=== PATIENT | female | born 1965 | race Caucasian/White ===

== ENCOUNTER 2017-10-21 19:40 | Emergency (ER) | payer MEDICAID ==
[~2017-10-21 19:40] MED LIST: BACL10TA PO; CYAN1000P SQ; HYDR200T3 PO; LAMO200T PO; MELO15TA20 PO; MORP1TAB25 PO; PILO5TAB3 PO; POLYSOL14 EACH EYE; REST0.05 EACH EYE; ZOLO100T PO
[2017-10-21 19:42] VITALS: BP 140/75; PULSE 98; RESP 16; TEMP 99.6; O2SAT 100
--- NOTE | 2017-10-21 21:39 | RADRPT ---
EXAM DATE/TIME: 10/21/2017 20:59 [place] COMPARISON: No previous studies available for comparison. INDICATIONS : Left hip pain after falling tonight. MEDICAL HISTORY : Arthritis. Fibromyalgia. SURGICAL HISTORY : Tubal ligation. Gastric bypass. ENCOUNTER: Initial ACUITY: 1 day PAIN SCORE: 8/10 LOCATION: Left hip. FINDINGS: Examination of the left hip was performed with AP Pelvis. The primary and secondary trabecular patte rn of the femoral neck is intact. The hip joint is of normal width without significant sclerosis or bony hypertrophy. The acetabulum is grossly intact. There are well-circumscribed densities in both f emoral necks which are overly benign and may represent unusual bone islands. Severe dextrorotoscolios is of the lumbar spine with associated degenerative changes. Surgical clips in the pelvis characteris tic of prior tubal ligation CONCLUSION: No fracture. Dirk Gallardo MD on October 21, 2017 at 21:34 Board Certified Radiologist. This report was verified electronically.
[2017-10-21] MEDS ORDERED: MSIR30 PO (22:59)
[2017-10-21] MEDS ORDERED: REST0.05 EACH EYE (22:59)
[2017-10-22] MEDS ORDERED: DIAZEPAM 5 MG TAB PO ONE (00:15)
[2017-10-22] MEDS ORDERED: MORPHINE SULFATE 8 MG/ML INJ IM ONE (00:15)
--- NOTE | 2017-10-22 01:27 | PD ---
HPI Chief Complaint: Hip Injury Time Seen by Provider: 23:41 Travel History International Travel<30 days: No Contact w/Intl Traveler<30days: No Traveled to known affect area: No History of Present Illness HPI 52yo F with PMH of fibromyalgia, degenerative disc, chronic pain who follows with pain management Dr. Wong here with c/o coccyx pain and some left hip pain initially after tripping over [employer] tree on the floor of store and fell onto her buttocks. Denies any head trauma, focal weakness or numbness, urinary complaints. States pain is worst when she sits on it. PFSH Past Medical History Hx Anticoagulant Therapy: No Anemia: Yes Arthritis: Yes Bipolar Disorder: Yes Anxiety: Yes Cardiovascular Problems: No Chemotherapy: No Cerebrovascular Accident: No Diabetes: No Diminished Hearing: No Fibromyalgia: Yes GERD: Yes Herniated Disk: Yes Neurologic: Yes (SCIATICA) Respiratory: No Tetanus Vaccination: < 5 Years Influenza Vaccination: Yes ?: Not : 1 Para: 1 Miscarriage: 0 : 0 Tubal Ligation: Yes Past Surgical History Abdominal Surgery: Yes (GASTRIC BYPASS) Genitourinary Surgery: Yes (BLADDER TUCK) Hysterectomy: Yes Tonsillectomy: Yes Other Surgery: Yes (GASTRIC BYPASS X 2) Social History Alcohol Use: No Tobacco Use: No Substance Use: No Allergies-Medications (Allergen,Severity, Reaction): Coded Allergies: codeine (Unverified Allergy, Severe, 07/07/17) pregabalin (Unverified Allergy, Severe, Anaphylaxis, 07/07/17) Reported Meds & Prescriptions Reported Meds & Active Scripts Active Reported Morphine IR (Morphine Sulfate) 30 Mg Tab 30 Mg PO TID PRN Restasis Opth (Cyclosporine Opth) 0.05% Emul 2 Drop EACH EYE BID Zoloft (Sertraline HCl) 100 Mg Tab 150 Mg PO DAILY Lamotrigine 200 Mg Tab 200 Mg PO BID Cyanocobalamin Inj (Cyanocobalamin) 1,000 Mcg/Ml Inj 1,000 Mcg SQ Q30D Meloxicam 15 Mg Tab 15 Mg PO DAILY Baclofen 10 Mg Tab 10 Mg PO TID Hydroxychloroquine (Hydroxychloroquine Sulfate) 200 Mg Tab 1 Tab PO DAILY Takw with food Pilocarpine 5 Mg Tab 1 Tab PO TID Review of Systems Except as stated in HPI: all other systems reviewed are Neg Physical Exam Narrative GENERAL: 52yo F in mild distress. SKIN: Focused skin assessment warm/dry. HEAD: Atraumatic. Normocephalic. EYES: Pupils equal and round. No scleral icterus. No injection or drainage. CARDIOVASCULAR: Regular rate and rhythm. No murmur appreciated. RESPIRATORY: No accessory muscle use. Clear to auscultation. Breath sounds equal bilaterally. GASTROINTESTINAL: Abdomen soft, non-tender, nondistended. BACK: No midline thoracic or lumbar ttp. PELVIC: +TTP left ischial tuberosity and coccyx. FROM in bilateral hips. Sensation equal and intact in bilateral legs. No saddle paresthesia. MUSCULOSKELETAL: No obvious deformities. No clubbing. No cyanosis. No edema. NEUROLOGICAL: Awake and alert. No obvious cranial nerve deficits. Motor grossly within normal limits. Normal speech. PSYCHIATRIC: Appropriate mood and affect; insight and judgment normal. Data Data Last Documented VS Vital Signs Date Time Temp Pulse Resp B/P (MAP) Pulse Ox O2 Delivery O2 Flow Rate FiO2 10/22/17 01:27 10/21/17 19:42 99.6 98 16 100 Room Air Orders Orders Hip, Uni(Ap&Lat) W Ap Pelvis (10/21/17 ) Diazepam (Valium) (10/22/17 00:15) Morphine Inj (Morphine Inj) (10/22/17 00:15) Ed Discharge Order (10/22/17 01:20) [facility] Medical Decision Making Medical Screen Exam Complete: Yes Emergency Medical Condition: Yes Differential Diagnosis Contusion vs. fracture vs. musculoskeletal pain Narrative Course 52yo F here pain in coccyx and initially left hip after fall from standing at 5pm today. Took her morphine but little relief. Xray pelvis and left hip showed no fracture. Pt given morphine and valium which improved pain. Pt follows with pain management and will follow up as outpatient. No red flags. Return precautions given. Diagnosis Primary Impression: Fall Qualified Codes: W19.XXXA - Unspecified fall, initial encounter Patient Instructions: General Instructions Departure Forms: Tests/Procedures Additional Instructions: Please follow up with your pain management physician. Return to the ED if symptoms worsen. Med/Other Pt SpecificInfo: No Change to Meds Disposition: 01 DISCHARGE HOME Condition: Stable Montse Malcolm DO Oct 22, 2017 01:27
== END 2017-10-22 01:33 | disposition home or self-care (01) ==
LOC: NEPD 19:40
DX: M25.552 Pain in left hip (principal); M54.9 Dorsalgia, unspecified; M79.7 Fibromyalgia; D64.9 Anemia, unspecified; M19.90 Unspecified osteoarthritis, unspecified site; F31.9 Bipolar disorder, unspecified; F41.9 Anxiety disorder, unspecified; K21.9 Gastro-esophageal reflux disease without esophagitis; Z79.899 Other long term (current) drug therapy
CPT/HCPCS: 73502; 96372; 99283; J2270

== ENCOUNTER 2017-10-24 18:46 | Emergency (ER) | payer MEDICAID ==
[~2017-10-24 18:46] MED LIST changes: -MORP1TAB25 PO; +MSIR30 PO; -POLYSOL14 EACH EYE
[2017-10-24 18:47] VITALS: BP 126/72; PULSE 87; RESP 12; TEMP 98.2; O2SAT 97
[2017-10-24] MEDS ORDERED: PRED10PA PO (21:02)
--- NOTE | 2017-10-24 21:09 | PD ---
HPI . Coccyx and right leg pain Chief Complaint: Fall Time Seen by Provider: 20:53 Travel History International Travel<30 days: No Contact w/Intl Traveler<30days: No Traveled to known affect area: No History of Present Illness HPI Patient presents stating that she had a fall 4 days ago her buttocks. She has had coccyx pain since that time. She was seen here at that time had negative x- rays. She states that she was told to come back if her symptoms got worse did not improve. She states that she has subsequently fallen again. She is now complaining with pain in her right anterior thigh and a swollen sensation in her right lower leg. Her pain is exacerbated by movement. She rates her pain 9 /10. This patient is started being treated by pain management. She takes morphine, baclofen and Mobic on a regular basis. PFSH Past Medical History Hx Anticoagulant Therapy: No Anemia: Yes Arthritis: Yes Bipolar Disorder: Yes Anxiety: Yes Cardiovascular Problems: No Chemotherapy: No Cerebrovascular Accident: No Diabetes: No Diminished Hearing: No Fibromyalgia: Yes GERD: Yes Herniated Disk: Yes Neurologic: Yes (SCIATICA) Respiratory: No ?: Not : 1 Para: 1 Miscarriage: 0 : 0 Tubal Ligation: Yes Past Surgical History Abdominal Surgery: Yes (GASTRIC BYPASS) Genitourinary Surgery: Yes (BLADDER TUCK) Hysterectomy: Yes Tonsillectomy: Yes Other Surgery: Yes (GASTRIC BYPASS X 2) Social History Alcohol Use: No Tobacco Use: No Substance Use: No Allergies-Medications (Allergen,Severity, Reaction): Coded Allergies: codeine (Unverified Allergy, Severe, 10/24/17) pregabalin (Unverified Allergy, Severe, Anaphylaxis, 10/24/17) Reported Meds & Prescriptions Reported Meds & Active Scripts Active Prednisone (21) 10 mg tab Dose Pack (Prednisone) 10 Mg Pack 10 Mg PO DIRECTED Reported Morphine IR (Morphine Sulfate) 30 Mg Tab 30 Mg PO TID PRN Restasis Opth (Cyclosporine Opth) 0.05% Emul 2 Drop EACH EYE BID Zoloft (Sertraline HCl) 100 Mg Tab 150 Mg PO DAILY Lamotrigine 200 Mg Tab 200 Mg PO BID Cyanocobalamin Inj (Cyanocobalamin) 1,000 Mcg/Ml Inj 1,000 Mcg SQ Q30D Meloxicam 15 Mg Tab 15 Mg PO DAILY Baclofen 10 Mg Tab 10 Mg PO TID Hydroxychloroquine (Hydroxychloroquine Sulfate) 200 Mg Tab 1 Tab PO DAILY Takw with food Pilocarpine 5 Mg Tab 1 Tab PO TID Review of Systems Except as stated in HPI: all other systems reviewed are Neg General / Constitutional: No: Fever, Chills Genitourinary: No: Incontinence Physical Exam Narrative GENERAL: Awake and alert and in no acute distress. SKIN: Warm and dry. There is no bruising on her buttocks. HEAD: Normocephalic/atraumatic. EYES: Pupils are equal. Extraocular movements are intact. NECK: Normal range of motion. CARDIOVASCULAR: Regular rate and rhythm. RESPIRATORY: Nonlabored respirations. MUSCULOSKELETAL: Very slow movement. She is tender in the area of the coccyx. She has no pain with log rolling of her hip. She allows raise with no apparent pain. The skin of her lower extremities has normal and equal color. There is no swelling. She is distally neurovascularly intact. NEUROLOGICAL: Nonfocal. PSYCHIATRIC: Appropriate mood and affect. Data Data Last Documented VS Vital Signs Date Time Temp Pulse Resp B/P (MAP) Pulse Ox O2 Delivery O2 Flow Rate FiO2 10/24/17 18:47 98.2 87 12 126/72 (90) 97 Orders Orders Ed Discharge Order (10/24/17 21:03) [facility] Medical Decision Making Medical Screen Exam Complete: Yes Emergency Medical Condition: Yes Differential Diagnosis Differential diagnosis of leg pain includes but is not limited to lumbar radiculopathy, arthritis, myalgias, DVT, ruptured Gomes's cyst. Narrative Course This patient presents for repeat evaluation of injury sustained in a fall. She is a patient of pain management. She chronically takes morphine, baclofen and Mobic. I have explained to the patient that there is not going to be a whole lot more that we can do for her pain here. I have suggested that she sat on a doughnut. I have suggested that she use ice on her coccyx. I will give her a prescription for prednisone for probable acute sciatica. She does not have any worrisome signs or symptoms such as fever, saddle anesthesia or incontinence. Diagnosis Primary Impression: Right leg pain Additional Impression: Coccyx pain Patient Instructions: General Instructions, Coccyx Injury (ED), Sciatica (ED) Departure Forms: Tests/Procedures Additional Instructions: Continue your current medications prescribed by pain management. Sit on a doughnut. Ice to the area. Scripts Prednisone (21) 10 mg tab Dose Pack (Prednisone (21) 10 mg tab Dose Pack) 10 Mg Pack 10 MG PO DIRECTED for Inflammation, #1 DSPK 0 Refills Prov: Alexa Thompson MD 10/24/17 Disposition: 01 DISCHARGE HOME Condition: Stable Alexa Thompson MD Oct 24, 2017 21:09
[2017-10-24] MEDS ORDERED: predniSONE 20 MG TAB PO ONE (21:15)
== END 2017-10-24 21:25 | disposition home or self-care (01) ==
LOC: NEPD 18:46
DX: M79.604 Pain in right leg (principal); M53.3 Sacrococcygeal disorders, not elsewhere classified; W19.XXXA Unspecified fall, initial encounter
CPT/HCPCS: 99283